=== PATIENT | male | born 1965 | race Caucasian/White ===

== ENCOUNTER → 2017-11-03 10:19 | Outpatient (CLI) | payer OTHER, SELFPAY ==
[2017-11-03 13:03] LABS: Alanine Aminotransferase 38 IU/L (21-72); Albumin 4.6 g/dL (3.5-5.0); Albumin Globulin Ratio 1.6 (1.0-2.8); Alkaline Phosphatase 55 U/L (38-126); Aspartate Aminotransferase 31 IU/L (17-59); BUN Creatinine Ratio 28.6 (6-22); Bilirubin Total 1.3 mg/dL (0.2-1.3); Blood Urea Nitrogen 20 mg/dL (9-20); Calcium 9.5 mg/dL (8.4-10.2); Carbon Dioxide 27 mmol/L (22-32); Chloride 101 mmol/L (98-107); Cholesterol 154 mg/dL (140-199); Estimated Glomerular Filt Rate > 60.0 mL/min (>60); Globulin 2.9 g/dL (1.7-4.1); Glucose 88 mg/dL (70-100); HDL Cholesterol 43 mg/dL (40-60); HEMOLYSIS < 15 (0-50); LDL Cholesterol Calculated 79 mg/dL (<100); Potassium 3.9 mmol/L (3.4-5.1); Sodium 141 mmol/L (137-145); Total Protein 7.5 g/dL (6.3-8.2); Triglycerides 162 mg/dL (35-150)
== END ==
PROVIDERS: PCP Physician Assistant; Visit Provider Physician Assistant
DX: I10 Essential (primary) hypertension (principal)
CPT/HCPCS: 36415; 80053; 80061

== ENCOUNTER → 2019-04-19 10:39 | Outpatient (CLI) | payer OTHER, SELFPAY ==
[2019-04-19 12:37] LABS: Prostate Specific Antigen 1.41 ng/mL (0.10-4.00)
== END ==
PROVIDERS: PCP Family Medicine; Visit Provider Family Medicine
DX: Z12.5 Encounter for screening for malignant neoplasm of prostate (principal)
CPT/HCPCS: 36415; 84153

== ENCOUNTER → 2020-05-30 16:50 | Outpatient (CLI) | payer OTHER, SELFPAY ==
[2020-05-30 17:08] LABS: Add Manual Diff / Slide Review NO; Basophils Absolute Auto 100 /uL (0-100); Basophils Percent Auto 0.7 % (0-2); Eosinophils Absolute Auto 100 /uL (0-450); Eosinophils Percent Auto 1.2 % (2-4); Hematocrit 44.8 % (41-53); Hemoglobin 15.4 g/dL (13.5-17.5); Lymphocytes Absolute Auto 3600 /uL (1100-4500); Lymphocytes Percent Auto 45.5 % (25-40); Mean Corpuscular HGB Conc 34.4 % (30-36); Mean Corpuscular Hemoglobin 30.1 PG (26-34); Mean Corpuscular Volume 87.4 fL (80-100); Monocytes Absolute Auto 500 /uL (0-900); Monocytes Percent Auto 6.3 % (3-14); Neutrophils Absolute Auto 3700 /uL (1500-7000); Neutrophils Percent Auto 46.3 % (50-75); Platelet Count 246 X10^3/uL (150-400); Red Blood Cell Count 5.13 X10^6/uL (4.5-5.9); Red Cell Distribution Width 13.1 % (11.6-14.8)
[2020-05-30 17:34] LABS: Alanine Aminotransferase 54 IU/L (<50); Albumin 4.6 g/dL (3.5-5.0); Albumin Globulin Ratio 1.7 (1.0-2.8); Alkaline Phosphatase 53 U/L (38-126); Aspartate Aminotransferase 39 IU/L (17-59); BUN Creatinine Ratio 26.3 (6-22); Blood Urea Nitrogen 20 mg/dL (9-20); Calcium 9.5 mg/dL (8.4-10.2); Carbon Dioxide 29 mmol/L (22-32); Chloride 102 mmol/L (98-107); Cholesterol 178 mg/dL (140-199); Estimated Glomerular Filt Rate > 60.0 mL/min (>60); Globulin 2.7 g/dL (1.7-4.1); Glucose 93 mg/dL (70-100); HDL Cholesterol 41 mg/dL (40-60); HEMOLYSIS < 15 (0-50); LDL Cholesterol Calculated 92 mg/dL (<100); Potassium 3.8 mmol/L (3.4-5.1); Sodium 137 mmol/L (137-145); Total Protein 7.3 g/dL (6.3-8.2); Triglycerides 226 mg/dL (35-150)
[2020-05-30 18:02] LABS: Prostate Specific Antigen 1.46 ng/mL (0.10-4.00)
== END ==
PROVIDERS: PCP Family Medicine; Referring Provider Family Medicine; Visit Provider Family Medicine
DX: Z00.00 Encounter for general adult medical examination without abnormal findings (principal); I10 Essential (primary) hypertension
CPT/HCPCS: 36415; 80053; 80061; 84153; 85025

== ENCOUNTER 2021-04-24 14:42 | Emergency (ER) | payer OTHER, SELFPAY ==
[2021-04-24] VITALS (7 sets, daily range): BP systolic 143–162; BP diastolic 91–98; PULSE 62–78; RESP 18; TEMP 36.9; O2SAT 97–100; BMI 34.8
[2021-04-24 18:42] LABS: Alanine Aminotransferase 50 IU/L (<50); Albumin 4.7 g/dL (3.5-5.0); Albumin Globulin Ratio 1.7 (1.0-2.8); Alkaline Phosphatase 53 U/L (38-126); Aspartate Aminotransferase 42 IU/L (17-59); BUN Creatinine Ratio 23.5 (6-22); Bilirubin Total 1.1 mg/dL (0.2-1.3); Blood Urea Nitrogen 19 mg/dL (9-20); Calcium 9.7 mg/dL (8.4-10.2); Carbon Dioxide 31 mmol/L (22-32); Chloride 101 mmol/L (98-107); Estimated Glomerular Filt Rate > 60.0 mL/min (>60); Globulin 2.7 g/dL (1.7-4.1); Glucose 87 mg/dL (70-100); HEMOLYSIS < 15 (0-50); Magnesium 2.3 mg/dL (1.6-2.3); Potassium 3.7 mmol/L (3.4-5.1); Sodium 138 mmol/L (137-145); Total Protein 7.4 g/dL (6.3-8.2)
[2021-04-24 18:43] LABS: Add Manual Diff / Slide Review NO; Basophils Absolute Auto 0 /uL (0-100); Basophils Percent Auto 0.4 % (0-2); Eosinophils Absolute Auto 100 /uL (0-450); Eosinophils Percent Auto 1.6 % (2-4); Hematocrit 45.3 % (41-53); Hemoglobin 15.9 g/dL (13.5-17.5); Lymphocytes Absolute Auto 3200 /uL (1100-4500); Lymphocytes Percent Auto 44.8 % (25-40); Mean Corpuscular HGB Conc 35.1 % (30-36); Mean Corpuscular Hemoglobin 30.3 PG (26-34); Mean Corpuscular Volume 86.3 fL (80-100); Monocytes Absolute Auto 700 /uL (0-900); Monocytes Percent Auto 9.9 % (3-14); Neutrophils Absolute Auto 3100 /uL (1500-7000); Neutrophils Percent Auto 43.3 % (50-75); Platelet Count 270 X10^3/uL (150-400); Red Blood Cell Count 5.25 X10^6/uL (4.5-5.9); White Blood Cell Count 7.1 X10^3/uL (4.5-11.0)
--- NOTE | 2021-04-24 19:29 | ED.GENADULT ---
HPI - General Adult <YONG Todd - Last Filed: 04/24/21 19:37> General Chief complaint: Hypertension Stated complaint: HIGH BP X 6 DAYS Time Seen by Provider: 04/24/21 17:06 Source: patient Mode of arrival: Ambulatory History of Present Illness HPI narrative: The patient is a 55-year-old male nonsmoker with history of hypertension who presents with a chief complaint of high blood pressure for 6 days. He states he was having his blood pressure checked at his dentist's office, when they found that his blood pressure was in the 170/110 range. He denies any chest pain shortness of breath, denies any lightheadedness or dizziness. He takes lisinopril/HCTZ 20/25 and states he takes it every single day in the evening. He states he has been compliant with his medications. He states that he has a telehealth appointment with primary care provider tomorrow at 10:30 a.m.. Related Data Previous Rx's Medication Instructions Recorded lisinopril 20 mg tablet 20 mg PO DAILY #90 tab 04/25/21 lisinopril 20 1 tab PO DAILY #90 tab 04/25/21 mg-hydrochlorothiazide 25 mg tablet Allergies Allergy/AdvReac Type Severity Reaction Status Date / Time No Known Drug Allergies Allergy Verified 05/30/20 16:11 Review of Systems <YONG Todd - Last Filed: 04/24/21 19:37> Review of Systems Narrative: GENERAL: Denies chills, fatigue, malaise, fever, sweats. HEENT: Denies sinus pain, ear pain, sore throat, difficulty swallowing, dizziness. RESPIRATORY: Denies dyspnea, cough, wheezing, hemoptysis, sputum. CARDIOVASCULAR: See HPI GASTROINTESTINAL: Denies nausea, vomiting, abdominal pain, diarrhea, constipation, melena. : Denies dysuria, frequency, incontinence, hematuria, urinary retention. MUSCULOSKELETAL: denies weakness, joint pain, or bony pain SKIN: Denies rash, skin lesions, or other NEUROLOGIC: Denies weakness, headache, numbness, change in speech, confusion, seizures, incoordination. PSYCHIATRIC: No concerning psychosocial issues. 12 point review of systems is negative except for those stated above Patient History <YONG Todd - Last Filed: 04/24/21 19:37> Medical History (Updated 04/25/21 @ 10:56 by SHERI Mario) Chronic back pain (Unknown) Hypertension (Unknown) Surgical History History of back surgery (2007) Hx of knee surgery (2011) Hx of microdiscectomy (12/2015) Social History Smoking Status: Never smoker alcohol intake: current (Socially) substance use type: does not use Smoking Status: Never smoker alcohol intake frequency: holidays/special occasions only Substance Use Type: does not use Exam <WADE Todd-BC - Last Filed: 04/24/21 19:37> Narrative Exam Narrative: GENERAL: This is a well-nourished, well-developed patient, in no acute distress with HEAD: Atraumatic. Normocephalic. No temporal or scalp tenderness. EYES: Pupils equal round and reactive. Extraocular motions intact. No scleral icterus. No injection or drainage. ENT: Nose without bleeding, purulent drainage or septal hematoma. Wearing a mask Airway patent. NECK: Trachea midline. No JVD or lymphadenopathy. Supple, nontender, no meningeal signs. CARDIOVASCULAR: Regular rate and rhythm RESPIRATORY: Clear to auscultation. Breath sounds equal bilaterally. No wheezes, rales, or rhonchi. No cough. No increased respiratory effort. No accessory muscle use. GASTROINTESTINAL: Abdomen soft, non-tender, nondistended. No hepato-splenomegaly, or palpable masses. No guarding. EXTREMITIES: No clubbing, cyanosis, or edema. No joint tenderness, effusion, or edema noted. BACK: Nontender without deformity or crepitance. No flank tenderness. NEURO: AOx3. Clear speech. No gross cranial nerve deficit. SKIN: No rash or erythema. Initial Vital Signs Initial Vital Signs: Vital Signs Temperature 98.4 F 04/24/21 14:44 Pulse Rate 78 04/24/21 14:44 Respiratory Rate 18 04/24/21 14:44 Blood Pressure 152/94 H 04/24/21 14:44 Pulse Oximetry 100 04/24/21 14:44 <Fawad Joyner DO - Last Filed: 04/28/21 07:05> Initial Vital Signs Initial Vital Signs: Vital Signs Temperature 98.4 F 04/24/21 14:44 Pulse Rate 78 04/24/21 14:44 Respiratory Rate 18 04/24/21 14:44 Blood Pressure 152/94 H 04/24/21 14:44 Pulse Oximetry 100 04/24/21 14:44 Scores <YONG Todd - Last Filed: 04/24/21 19:37> GCS [place] coma scale eye opening: Spontaneous [place] coma scale verbal response: Orientated [place] coma scale motor response: Obey commands [place] coma scale total score: 15 <Fawad Joyner DO - Last Filed: 04/28/21 07:05> GCS [place] coma scale total score: 15 Course <YONG Todd - Last Filed: 04/24/21 19:37> Orders Ordered: ED Orders 04/24/21 18:12 CBC Auto Diff [Complete Blood Count AUTO DIFF] Stat CMP [Comprehensive Metabolic Panel] Stat MAG [Magnesium] Stat Vital Signs Vital signs: Vital Signs - 8 hr 04/24/21 14:44 04/24/21 17:01 04/24/21 17:30 Temperature 98.4 F Pulse Rate 78 75 64 Respiratory Rate 18 18 18 Blood Pressure 152/94 H 162/98 H 149/96 H Pulse Oximetry 100 97 97 04/24/21 18:00 04/24/21 18:02 04/24/21 18:30 Temperature Pulse Rate 70 64 62 Respiratory Rate 18 18 18 Blood Pressure 152/91 H 149/96 H 143/92 H Pulse Oximetry 97 97 97 04/24/21 19:15 Temperature Pulse Rate 63 Respiratory Rate 18 Blood Pressure 143/91 H Pulse Oximetry 97 <Fawad Joyner DO - Last Filed: 04/28/21 07:05> Orders Ordered: ED Orders 04/24/21 18:12 CBC Auto Diff [Complete Blood Count AUTO DIFF] Stat CMP [Comprehensive Metabolic Panel] Stat MAG [Magnesium] Stat Vital Signs Vital signs: Vital Signs - 8 hr 04/24/21 14:44 04/24/21 17:01 04/24/21 17:30 Temperature 98.4 F Pulse Rate 78 75 64 Respiratory Rate 18 18 18 Blood Pressure 152/94 H 162/98 H 149/96 H Pulse Oximetry 100 97 97 04/24/21 18:00 04/24/21 18:02 04/24/21 18:30 Temperature Pulse Rate 70 64 62 Respiratory Rate 18 18 18 Blood Pressure 152/91 H 149/96 H 143/92 H Pulse Oximetry 97 97 97 04/24/21 19:15 Temperature Pulse Rate 63 Respiratory Rate 18 Blood Pressure 143/91 H Pulse Oximetry 97 Medical Decision Making <Smitha Kitchen, SUPERIOR COURT JUSTICE-BC - Last Filed: 04/24/21 19:37> Lab Data Lab results reviewed: Yes I reviewed the patient's lab results. Result diagrams: 04/24/21 18:12 04/24/21 18:12 Labs: Lab Results 04/24/21 04/24/21 Range/Units 18:12 18:12 WBC 7.1 (4.5-11.0) X10^3/uL RBC 5.25 (4.5-5.9) X10^6/uL Hgb 15.9 (13.5-17.5) g/dL Hct 45.3 (41-53) % MCV 86.3 (80-100) fL MCH 30.3 (26-34) PG MCHC 35.1 (30-36) % RDW 13.0 (11.6-14.8) % Plt Count 270 (150-400) X10^3/uL Neut % (Auto) 43.3 L (50-75) % Lymph % (Auto) 44.8 H (25-40) % [place] % (Auto) 9.9 (3-14) % Eos % (Auto) 1.6 L (2-4) % Baso % (Auto) 0.4 (0-2) % Neut # (Auto) 3100 (5546-5015) /uL Lymph # (Auto) 3200 (7966-8955) /uL [place] # (Auto) 700 (0-900) /uL Eos # (Auto) 100 (0-450) /uL Baso # (Auto) 0 (0-100) /uL Sodium 138 (137-145) mmol/L Potassium 3.7 (3.4-5.1) mmol/L Chloride 101 (98-107) mmol/L Carbon Dioxide 31 (22-32) mmol/L BUN 19 (9-20) mg/dL Creatinine 0.81 (0.66-1.25) mg/dL Estimated GFR > 60.0 (>60) mL/min BUN/Creatinine Ratio 23.5 H (6-22) Glucose 87 (70-100) mg/dL Calcium 9.7 (8.4-10.2) mg/dL Magnesium 2.3 (1.6-2.3) mg/dL Total Bilirubin 1.1 (0.2-1.3) mg/dL AST 42 (17-59) IU/L ALT 50 H (<50) IU/L Alkaline Phosphatase 53 (38-126) U/L Total Protein 7.4 (6.3-8.2) g/dL Albumin 4.7 (3.5-5.0) g/dL Globulin 2.7 (1.7-4.1) g/dL Albumin/Globulin Ratio 1.7 (1.0-2.8) ECG Data Attestation: I personally reviewed and interpreted this ECG as follows: Interpretation: Normal sinus rhythm. Ventricular rate 62. P.r. interval 174. Viewed by Dr Juan PFEIFFER Narrative Medical decision making narrative: The patient is a 52-year-old male who presents with a chief complaint of high blood pressure at his dentist's office several times. His blood pressure in the emergency department in the 140s over 90s. Denies any chest pain or shortness of breath. EKG has no acute findings. Given that the patient has good blood pressures in the emergency department, and has an appointment with primary care provider tomorrow at 10:30 a.m. in the morning, I will defer to his primary care provider to titrate his chronic blood pressure medications. He denies any chest pain or shortness of breath throughout his emergency department stay. Discussed at length follow up with primary care provider, coming back to the ER for acute concerns such as chest pain, shortness of breath etcetera. <Fawad Joyner, - Last Filed: 04/28/21 07:05> Lab Data Labs: Lab Results 04/24/21 04/24/21 Range/Units 18:12 18:12 WBC 7.1 (4.5-11.0) X10^3/uL RBC 5.25 (4.5-5.9) X10^6/uL Hgb 15.9 (13.5-17.5) g/dL Hct 45.3 (41-53) % MCV 86.3 (80-100) fL MCH 30.3 (26-34) PG MCHC 35.1 (30-36) % RDW 13.0 (11.6-14.8) % Plt Count 270 (150-400) X10^3/uL Neut % (Auto) 43.3 L (50-75) % Lymph % (Auto) 44.8 H (25-40) % [place] % (Auto) 9.9 (3-14) % Eos % (Auto) 1.6 L (2-4) % Baso % (Auto) 0.4 (0-2) % Neut # (Auto) 3100 (5460-6005) /uL Lymph # (Auto) 3200 (3975-9201) /uL [place] # (Auto) 700 (0-900) /uL Eos # (Auto) 100 (0-450) /uL Baso # (Auto) 0 (0-100) /uL Sodium 138 (137-145) mmol/L Potassium 3.7 (3.4-5.1) mmol/L Chloride 101 (98-107) mmol/L Carbon Dioxide 31 (22-32) mmol/L BUN 19 (9-20) mg/dL Creatinine 0.81 (0.66-1.25) mg/dL Estimated GFR > 60.0 (>60) mL/min BUN/Creatinine Ratio 23.5 H (6-22) Glucose 87 (70-100) mg/dL Calcium 9.7 (8.4-10.2) mg/dL Magnesium 2.3 (1.6-2.3) mg/dL Total Bilirubin 1.1 (0.2-1.3) mg/dL AST 42 (17-59) IU/L ALT 50 H (<50) IU/L Alkaline Phosphatase 53 (38-126) U/L Total Protein 7.4 (6.3-8.2) g/dL Albumin 4.7 (3.5-5.0) g/dL Globulin 2.7 (1.7-4.1) g/dL Albumin/Globulin Ratio 1.7 (1.0-2.8) Discharge Plan Departure Patient Disposition: Home Clinical Impression: Hypertension Qualifiers: Hypertension type: primary hypertension Qualified Code(s): I10 - Essential (primary) hypertension Instructions: DI for High Blood Pressure Activity Restrictions/Additional Instructions: Thank you for trusting us with your care today. As discussed, your lab work resulted very well, your EKG looks good. Your blood pressure CR of been in the 140s over 90s, so I will defer to Dr. Suarez to change your blood pressure medications. Please follow-up with him as scheduled at 10:30 a.m. tomorrow morning Discussed, please come back to the emergency department for any acute concerns such as chest pain shortness of breath etcetera Prescriptions: No Action lisinopril 20 mg tablet 20 mg PO DAILY Qty: 90 3RF Rx Instructions: Take 1 tab daily at bedtime. Goal BP is <140/90 consistently. lisinopril-hydrochlorothiazide 20-25 mg tablet 1 tab PO DAILY Qty: 90 3RF Rx Instructions: Take 1 tab each morning for hypertension Referrals: Alexander Suarez DO [Primary Care Provider] - <Fawad Joyner DO - Last Filed: 04/28/21 07:05> Cosign ED Attending Cosignature Attestation: Dr Joyner Co-Sign Statement: I was available for consultation during this patient's emergency department visit. This chart is signed by myself for administrative purposes only. I did not have direct contact with this patient during this visit. They were seen independently by the APC.
== END 2021-04-24 19:40 | disposition home or self-care (01) ==
PROVIDERS: Emergency Provider Nurse Practitioner Family; PCP Family Medicine
DX: I10 Essential (primary) hypertension (principal)
CPT/HCPCS: 36415; 80053; 83735; 85025; 93005; 93010; 99283

== ENCOUNTER → 2021-05-16 11:43 | Outpatient (CLI) | payer OTHER, SELFPAY ==
[2021-05-16 13:41] LABS: Free T3, Triiodothyronine Free 4.07 pg/mL (2.77-5.27); Free T4, Direct Thyroxine 0.82 ng/dL (0.78-2.19)
[2021-05-16 13:55] LABS: Thyroid Stimulating Hormone 4.69 uIU/mL (0.47-4.68)
[2021-05-16 15:29] LABS: Creatinine Urine Random 186.7 mg/dL
[2021-05-16 15:33] LABS: Microalbumi Creatinin Ratio Ur 16.6 ug/mg CR (<30); Microalbumin Urine Random 3.1 mg/dL (0-1.6)
[2021-05-16 19:03] LABS: Prostate Specific Antigen Scrn 1.08 ng/mL (0.1-4.0)
== END ==
PROVIDERS: PCP Family Medicine; Referring Provider Nurse Practitioner; Visit Provider Nurse Practitioner
DX: E78.5 Hyperlipidemia, unspecified (principal); I10 Essential (primary) hypertension; Z12.5 Encounter for screening for malignant neoplasm of prostate
CPT/HCPCS: 36415; 82043; 82570; 84439; 84443; 84481; G0103

== ENCOUNTER → 2021-08-23 12:38 | Outpatient (CLI) | payer OTHER, SELFPAY ==
[2021-08-23 13:19] LABS: Alanine Aminotransferase 58 IU/L (<50); Albumin 4.7 g/dL (3.5-5.0); Albumin Globulin Ratio 1.9 (1.0-2.8); Alkaline Phosphatase 55 U/L (38-126); Aspartate Aminotransferase 54 IU/L (17-59); Bilirubin Total 1.4 mg/dL (0.2-1.3); Blood Urea Nitrogen 16 mg/dL (9-20); Calcium 9.4 mg/dL (8.4-10.2); Carbon Dioxide 29 mmol/L (22-32); Chloride 102 mmol/L (98-107); Cholesterol 172 mg/dL (140-199); Estimated Glomerular Filt Rate > 60 mL/min (>60); Globulin 2.5 g/dL (1.7-4.1); Glucose 90 mg/dL (70-100); HDL Cholesterol 46 mg/dL (40-60); HEMOLYSIS < 15 (0-50); LDL Cholesterol Calculated 85 mg/dL (<100); Sodium 139 mmol/L (137-145); Total Protein 7.2 g/dL (6.3-8.2); Triglycerides 203 mg/dL (35-150); Uric Acid 8.3 mg/dL (3.5-8.5)
[2021-08-23 13:29] LABS: Free T4, Direct Thyroxine 1.05 ng/dL (0.78-2.19)
[2021-08-23 13:43] LABS: Thyroid Stimulating Hormone 3.94 uIU/mL (0.47-4.68)
== END ==
PROVIDERS: PCP Family Medicine; Referring Provider Family Medicine; Visit Provider Family Medicine
DX: E03.9 Hypothyroidism, unspecified (principal); I10 Essential (primary) hypertension
CPT/HCPCS: 36415; 80053; 80061; 84439; 84443; 84550

== ENCOUNTER → 2022-07-14 12:38 | Outpatient (CLI) | payer OTHER, SELFPAY ==
[2022-07-14 14:12] LABS: Alanine Aminotransferase 39 IU/L (<50); Albumin 4.3 g/dL (3.5-5.0); Albumin Globulin Ratio 1.6 (1.0-2.8); Alkaline Phosphatase 60 U/L (38-126); Aspartate Aminotransferase 34 IU/L (17-59); BUN Creatinine Ratio 28.4 (6-22); Bilirubin Total 1.4 mg/dL (0.2-1.3); Blood Urea Nitrogen 21 mg/dL (9-20); Calcium 8.8 mg/dL (8.4-10.2); Carbon Dioxide 30 mmol/L (22-32); Chloride 100 mmol/L (98-107); Estimated Glomerular Filt Rate > 60 mL/min (>60); Globulin 2.7 g/dL (1.7-4.1); Glucose 88 mg/dL (70-100); HEMOLYSIS < 15 (0-50); Potassium 4.4 mmol/L (3.4-5.1); Sodium 137 mmol/L (137-145)
== END ==
PROVIDERS: PCP Family Medicine; Referring Provider Family Medicine; Visit Provider Family Medicine
DX: I10 Essential (primary) hypertension (principal)
CPT/HCPCS: 36415; 80053

== ENCOUNTER → 2023-02-26 12:19 | Outpatient (CLI) | payer OTHER, SELFPAY ==
[2023-02-26 13:14] LABS: Add Manual Diff / Slide Review NO; Basophils Absolute Auto 0 /uL (0-100); Basophils Percent Auto 0.3 % (0-2); Eosinophils Absolute Auto 100 /uL (0-450); Eosinophils Percent Auto 1.2 % (2-4); Hematocrit 41.8 % (41-53); Hemoglobin 14.6 g/dL (13.5-17.5); Lymphocytes Absolute Auto 2600 /uL (1100-4500); Lymphocytes Percent Auto 42.3 % (25-40); Mean Corpuscular HGB Conc 34.9 % (30-36); Mean Corpuscular Hemoglobin 30.7 PG (26-34); Mean Corpuscular Volume 87.8 fL (80-100); Monocytes Absolute Auto 400 /uL (0-900); Monocytes Percent Auto 6.4 % (3-14); Neutrophils Absolute Auto 3000 /uL (1500-7000); Neutrophils Percent Auto 49.8 % (50-75); Platelet Count 290 X10^3/uL (150-400); Red Blood Cell Count 4.76 X10^6/uL (4.5-5.9); Red Cell Distribution Width 12.7 % (11.6-14.8); White Blood Cell Count 6.1 X10^3/uL (4.5-11.0)
[2023-02-26 13:32] LABS: Alanine Aminotransferase 33 IU/L (<50); Albumin 4.4 g/dL (3.5-5.0); Albumin Globulin Ratio 1.4 (1.0-2.8); Alkaline Phosphatase 60 U/L (38-126); Aspartate Aminotransferase 33 IU/L (17-59); BUN Creatinine Ratio 23.3 (6-22); Bilirubin Total 0.8 mg/dL (0.2-1.3); Blood Urea Nitrogen 17 mg/dL (9-20); Calcium 9.8 mg/dL (8.4-10.2); Carbon Dioxide 28 mmol/L (22-32); Chloride 98 mmol/L (98-107); Cholesterol 163 mg/dL (140-199); Estimated Glomerular Filt Rate > 60 mL/min (>60); Globulin 3.1 g/dL (1.7-4.1); Glucose 91 mg/dL (70-100); HDL Cholesterol 43 mg/dL (40-60); HEMOLYSIS < 15 (0-50); LDL Cholesterol Calculated 87 mg/dL (<100); Potassium 3.8 mmol/L (3.4-5.1); Sodium 135 mmol/L (137-145); Total Protein 7.5 g/dL (6.3-8.2); Triglycerides 165 mg/dL (35-150)
[2023-02-26 14:06] LABS: TSH w/ Reflex to FT4 2.88 uIU/mL (0.47-4.68)
[2023-02-26 14:07] LABS: Prostate Specific Antigen 1.38 ng/mL (0.10-4.00)
== END ==
PROVIDERS: PCP Family Medicine; Referring Provider Family Medicine; Visit Provider Family Medicine
DX: Z00.00 Encounter for general adult medical examination without abnormal findings (principal); E03.9 Hypothyroidism, unspecified; I10 Essential (primary) hypertension
CPT/HCPCS: 36415; 80053; 80061; 84153; 84443; 85025

== ENCOUNTER → 2023-12-11 17:11 | Outpatient (CLI) | payer OTHER, SELFPAY ==
--- NOTE | 2023-12-11 17:12 | DI.MRI.S_ITS ---
PROCEDURE: MR KNEE LT WO CON INDICATIONS: INTERNAL DERANGEMENT OF KNEE TECHNIQUE: Noncontrast sagittal PD fast spin echo and T2 fast spin echo with fat saturation, sagittal 3-D FLASH with fat saturation; coronal T1 spin echo and PD fast spin echo with fat saturation, and axial PD fast spin echo with fat saturation through the knee. COMPARISON: [facility], CR, XR KNEE 4+ VIEWS LEFT, 01/28/2023, 12:17. FINDINGS: Image quality: Excellent. Menisci: There is prior partial medial meniscectomy with truncated appearance of medial meniscus. Signal abnormality involving posterior horn remanent of medial meniscus extending to inferior articulating surface suggestive of recurrent oblique tear. The lateral meniscus is intact. The meniscal root ligaments appear intact. Cruciate ligaments: The anterior cruciate ligament is mildly thickened. The posterior cruciate ligament is intact. Medial structures: The medial collateral ligament appears thickened with mild surrounding edema. Visualized portions of the pes anserinus tendons appear normal. No abnormal bursal fluid. Lateral structures: The lateral collateral ligament, long and short heads of the biceps femoris tendon appear intact. The popliteus tendon appears normal. Iliotibial band appears normal. Anterior structures: Soft tissue edema and ill-defined fluid along anterolateral aspect of patella and patella tendon is seen. There is distal quadriceps tendinosis. The patellar tendon is intact. Patellar alignment is normal. No femoral trochlear dysplasia or ventral trochlear prominence. No edema in the infrapatellar fat pad. Bones and cartilage: There is marrow edema involving medial periphery of medial tibial plateau without discrete fracture line. No other area of abnormal marrow signal. Low-grade chondromalacia in medial femoral tibial compartment is seen. Joint space: There is small knee joint fluid. No Necarnacion's cyst. Normal appearing synovial plicae are incidentally noted. IMPRESSION: 1. Prior partial medial meniscectomy with postsurgical changes. Suggestion of recurrent oblique tear involving posterior horn remanent of medial meniscus extending to inferior articulating surface. The lateral meniscus is intact. 2. Low-grade ACL sprain. The PCL is intact. 3. Low-grade sprain/partial-thickness tear involving MCL. 4. Distal quadriceps tendinosis. The patellar tendon is intact. Soft tissue edema and swelling with ill-defined fluid along anterior lateral aspect of patella and patella tendon. 5. Contusion involving medial periphery of medial tibial plateau. No fracture or dislocation. Low-grade medial femoral tibial compartment chondromalacia. Small knee joint effusion, no loose bodies. Dictated by: Yung Galvez M.D. on 12/12/2023 at 23:23 Approved by: Yung Galvez M.D. on 12/12/2023 at 23:28
== END ==
LOC: MRI 17:11
PROVIDERS: PCP Family Medicine; Referring Provider Orthopaedic Surgery Adult Reconstructive Orthopaedic Surgery; Visit Provider Orthopaedic Surgery Adult Reconstructive Orthopaedic Surgery
DX: S83.512A Sprain of anterior cruciate ligament of left knee, initial encounter (principal); S83.412A Sprain of medial collateral ligament of left knee, initial encounter; M23.92 Unspecified internal derangement of left knee; S80.02XA Contusion of left knee, initial encounter; M94.262 Chondromalacia, left knee; M25.462 Effusion, left knee
CPT/HCPCS: 73721

== ENCOUNTER → 2023-12-29 10:42 | Outpatient (CLI) | payer OTHER, SELFPAY ==
--- NOTE | 2023-12-29 10:44 | EKG_ITS ---
[id number] [address] Test Date: 2023-12-29 Pat Name: Michele Arredondo Department: Room: Gender: Male Erp Engineer: BENOIT : 1965 Requested By: Order Number: [id number] Reading MD: Pineda Lakhani Measurements Intervals [place] Rate: 63 P: -47 VT: 136 QRS: 18 QRSD: 98 T: 5 QT: 422 QTc: 431 Interpretive Statements Unusual P axis, possible ectopic atrial rhythm Nonspecific T wave abnormality Electronically Signed On 01-04-2024 9:07:22 PDT by Pineda Lakhani
[2023-12-29 12:14] LABS: Add Manual Diff / Slide Review NO; Basophils Absolute Auto 0 /uL (0-100); Basophils Percent Auto 0.5 % (0-2); Eosinophils Absolute Auto 200 /uL (0-450); Eosinophils Percent Auto 2.7 % (2-4); Hematocrit 44.8 % (41-53); Hemoglobin 15.3 g/dL (13.5-17.5); Lymphocytes Absolute Auto 2500 /uL (1100-4500); Mean Corpuscular HGB Conc 34.2 % (30-36); Mean Corpuscular Hemoglobin 30.7 PG (26-34); Mean Corpuscular Volume 89.7 fL (80-100); Monocytes Absolute Auto 600 /uL (0-900); Monocytes Percent Auto 8.6 % (3-14); Neutrophils Absolute Auto 3300 /uL (1500-7000); Neutrophils Percent Auto 50.2 % (50-75); Platelet Count 294 X10^3/uL (150-400); Red Cell Distribution Width 13.5 % (11.6-14.8); White Blood Cell Count 6.6 X10^3/uL (4.5-11.0)
[2023-12-29 12:52] LABS: Hemoglobin A1C% w Est Avg Glu 5.4 % (4.0-6.0)
[2023-12-29 12:58] LABS: Albumin 4.6 g/dL (3.5-5.0); BUN Creatinine Ratio 21.6 (6-22); Blood Urea Nitrogen 19 mg/dL (9-20); Calcium 9.8 mg/dL (8.4-10.2); Carbon Dioxide 26 mmol/L (22-32); Chloride 101 mmol/L (98-107); Estimated Glomerular Filt Rate > 60 mL/min (>60); Glucose 97 mg/dL (70-100); HEMOLYSIS < 15 (0-50); Potassium 3.8 mmol/L (3.4-5.1); Sodium 136 mmol/L (137-145)
[2023-12-29 13:11] LABS: Prealbumin 29.3 mg/dL (17.6-36.0)
[2023-12-29 13:23] LABS: Vitamin D 25 Hydroxy (D3) 52.2 ng/mL (30.0-100.0)
== END ==
PROVIDERS: PCP Family Medicine; Referring Provider Orthopaedic Surgery Adult Reconstructive Orthopaedic Surgery; Visit Provider Orthopaedic Surgery Adult Reconstructive Orthopaedic Surgery
DX: Z01.818 Encounter for other preprocedural examination (principal); R77.0 Abnormality of albumin; E55.9 Vitamin D deficiency, unspecified; Z01.812 Encounter for preprocedural laboratory examination; R73.9 Hyperglycemia, unspecified
CPT/HCPCS: 36415; 80048; 82040; 82306; 83036; 84134; 85025; 93005

== ENCOUNTER 2024-04-15 06:07 | Day surgery (SDC) | payer OTHER, SELFPAY ==
[2024-04-12 13:05] VITALS: BMI 42.3
[2024-04-15] VITALS (7 sets, daily range): BP systolic 91–134; BP diastolic 60–93; PULSE 66–94; RESP 16; TEMP 36.1–36.8; O2SAT 96–99; BMI 42.3
--- NOTE | 2024-04-15 06:00 | DI.RAD.S_ITS ---
PROCEDURE: XR KNEE LT 1TO2V INDICATIONS: tka TECHNIQUE: 2 views of the knee were acquired. COMPARISON: None. FINDINGS: Bones: Medial tibiofemoral knee arthroplasty. Normal alignment. Soft tissues: No joint effusion. No suspicious soft tissue calcifications. IMPRESSION: Medial tibiofemoral knee arthroplasty, with normal alignment. Dictated by: Chris Kidd M.D. on 04/15/2024 at 10:51 Approved by: Chris Kidd M.D. on 04/15/2024 at 10:52
[2024-04-15] MEDS: LACTATED RINGERS 1,000 ML 42 ML IV (07:02)
[2024-04-15] MEDS: MELOXICAM 7.5 MG TABLET 15 MG PO (07:03)
--- NOTE | 2024-04-15 07:45 | PM.PREOP ---
Pre-operative Note Interval Note History & Physical reviewed/Exam performed by Physician: Yes Changes to H&P: No
[2024-04-15] MEDS: CEFAZOLIN 2 GM/100 ML PREMIX 100 ML IV (07:58)
[2024-04-15] MEDS: TRANEXAMIC ACID 1,000 MG VIAL 2000 MG INJ ×2 (08:00→09:40)
--- NOTE | 2024-04-15 08:29 | SUR.OPER ---
Supine on padded OR bed. Pillow under head, arms secured on padded armboards <90 degree abduction. Safety belt across torso. Non-operative leg secured with tape over blanket over lower leg. Operative leg secured in Babak positioner. Foam padded brace at thigh of operative leg.
[2024-04-15] MEDS: ROPIVACAINE/EPI/CLONIDINE/KET 50 ML SYRINGE INJ (08:34)
--- NOTE | 2024-04-15 10:18 | PM.OP.1 ---
Operative Date/Time/Diagnoses Date of procedure: 04/15/24 Pre-op diagnosis: Left knee osteoarthritis Post-op diagnosis: same Procedure & Clinicians Procedure: Left medial unicompartmental knee arthroplasty Same procedure as scheduled: Yes Surgeon: Paulo Simmons Live Ammunition Inspector: Maura Corey Anesthesia Type: Spinal, Sedation and Local Operative Notes Estimated Blood Loss (mL): 150 Procedure in detail: Robotic assisted left medial unicompartmental knee arthroplasty using the [employer] journey 2 system Implants: Size 6 Oxinium Femoral Component Size 8 Tibial Component Size 8 mm Polyethylene Procedure Summary: This patient had isolated medial compartment arthritis as confirmed on an MRI. Robotic assistance was utilized. He had an intact ACL, intact lateral compartment, and a relatively focal defect in the medial femoral condyle, and mild degenerative changes in the patellofemoral compartment. His varus deformity was measured at 3? at the start of the procedure - which aligned with the preoperative long leg measurement of 4? - and 2? at the conclusion of the procedure. At the conclusion of the procedure I was able to insert and remove a 2 mm insert without significant interference and had tightness when inserting and removing a 3 mm insert. Procedure in Detail: This patient was seen preoperatively and evaluated for knee pain which was refractory to numerous nonoperative treatment modalities. Their pain correlated with radiographic changes demonstrating significant degeneration in the knee joint. The risks and benefits of continued nonoperative management versus operative management were discussed at length and all of the patient?s questions were answered. Additional educational materials providing further details beyond our discussion in clinic were provided via a publicly available patient education video which included the incidence of medical complications associated with total knee arthroplasty, reasons for revision following total knee arthroplasty, and patient satisfaction rates following unicompartmental knee arthroplasty. With this understanding of the risks inherent to the procedure, the patient elected to move forward with operative management. Following preoperative optimization, the patient was scheduled for surgery. The patient was met in the preoperative holding area the day of the procedure and all questions were answered. The patient?s nares were swabbed with betadine in order to decolonize them from MRSA. Informed consent was signed and the left limb was marked with indelible ink.? The patient was brought back to the operating room where anesthesia was induced. The patient was transferred to the operating table and all bony prominences were padded. The operative site was prepped and draped in the usual sterile fashion. A second prep stick was utilized following drape placement. The incision was marked corresponding to the medial aspect of the tibial tubercle and the patella. I[place]an was wrapped circumferentially around the knee. Prior to incision, tranexamic acid and cefazolin were administered. Templating images were displayed. A timeout procedure was performed verifying the patient?s identity, medical comorbidities, allergies, relevant medications, anesthesia type and the surgical plan. All present were in agreement. The assistance of a physician child care assistant was required for positioning, room setup, soft tissue retraction and wound closure. Without this assistance, the procedure would have been significantly more challenging and time consuming.?? The tourniquet was inflated prior to incision. I made an anterior incision over the knee, dissected through the subcutaneous tissues and identified the lateral border of the VMO. Medial and lateral soft tissue flaps were developed. A medial parapatellar arthrotomy was performed. I released tissue off of the proximal medial tibia. I inserted pins for the robotic rays into the femur and tibia. I mapped out the distal femur and proximal tibia using the robotic array and mapped out the hip knee ankle axis as well. I noted grossly that she had some recoil with knee hyperextension. Also noted that the varus deformity was approximately 3? on the robotic array. I had measured it at 4? on the standing long-leg scanogram radiograph. I made a plan which would involve burring of the tibia and femur using the robotic system which would lead to a planned 2? of varus with an 8 mm insert. After reviewing all parameters on this plan I felt that it was appropriate and proceeded with burring. I initially burred the distal femur and the posterior femur followed by the proximal tibia. During burring of the proximal tibia I noted that the pin for the femur had extended distally far enough that it interfered with a bur so I backed that out slightly. I then finished the burring process and placed trials. I found these had appropriate parameters both with my gross assessment and with the robotic assessment. I therefore implanted those components. All bony ends were copiously irrigated and dried. Cement was introduced. The tibial component was inserted and excess cement was removed ensuring no cement had leaked out the back of the knee. Cement was then placed on the femur and the femoral component was inserted while maintaining pressure on the anterior tibial base plate to prevent lift-off. An 8 mm insert was then placed. This was a trial. The knee was placed into full extension and allowed to dry. Once cement had dried excess cement was removed, the tourniquet was taken down, and I again trialed with the 2 mm and 3 mm insert. I found that the 8 mm polyethylene had the correct gross kinematics on my assessment that I desired and I therefore placed the final polyethylene insert. The tissues were briefly soaked in peroxide and Betadine as a dilute mixture and then the knee was copiously irrigated. The arthrotomy was closed with ethibond suture ensuring that this extended to the top of the arthrotomy. This was backed up with running barbed suture throughout the arthrotomy. The skin was closed with 2-0 and 3-0 sutures. Surgical glue was applied and a soft dressing was placed.?The sponge, instrument and needle counts were reported as being correct at the end of the case.??No obvious complications occurred. The patient was transferred from the operating table back to a stretcher. The patient emerged from anesthesia without difficulty and was taken to the PACU in a stable condition.? Plan for aftercare: Weightbearing as tolerated Mobilization as soon as the patient has recovered from anesthesia. If physical therapists are unavailable at the time the patient is ready to ambulate, then nursing staff should help patient ambulate Aspirin 81 twice per day for DVT prophylaxis Multimodal pain regimen with no IV opioids ordered Anticipate discharge home later today Follow up at [facility] in 2 weeks Detailed postoperative instructions available at [email or web address]
[2024-04-15] MEDS: OXYCODONE IR 5 MG TABLET PO ×2 (10:49→12:11)
--- NOTE | 2024-04-15 12:12 | SUR.PHASEII ---
Physical therapy contacted for second time regarding need for assessment.
--- NOTE | 2024-04-15 12:52 | PT.IIE ---
Current Diagnoses Unilateral primary osteoarthritis, left knee (04/15/24) Surgery Performed Operation Date: 04/15/24 07:45 Actual Procedures p Medial Unicompartment Knee Arthroplasty - Robot(Left) - Paulo Simmons MD Surgical History (Last Reviewed 02/12/24 @ 10:14 by Alexander Suarez DO) History of back surgery (2006) Hx of knee surgery (2011) Hx of microdiscectomy (12/2015) Medical History (Last Reviewed 02/12/24 @ 10:14 by Alexander Suarez DO) Chronic back pain (Unknown) Encounter for pre-operative cardiovascular clearance Hypertension (Unknown) Hypothyroid Skin lesions Unilateral primary osteoarthritis, left knee Physical Therapy Inpatient Evaluation/Re-Eval M1 PT/OT-IP Prior Functional Status Start: 04/15/24 14:53 Freq: NEEDED Status: Active Protocol: Document 04/15/24 12:52 AB (Rec: 04/15/24 15:05 [id number]) Medical Review Prior Functional Status Medical History Reviewed Yes Communication able to make needs known Mobility and Gait pt statd that he was independent with all mobilities and ambulation without AD Social History Household Members spouse Living Arrangements House Number of Floors (Floors) One Floor Number of Stairs To Enter/Railing? 3 platform steps to enter Home Environment Standard Height Toilet,Walk in Shower,Built-In Shower Seat Home Equipment Front Wheel Walker,Hand Held Shower Employment Status Unemployed M2 PT-IP Current Condition Start: 04/15/24 14:53 Freq: NEEDED Status: Active Protocol: Document 04/15/24 12:52 AB (Rec: 04/15/24 15:05 AB [id number]) Physical Therapy Current Condition Current Condition Evaluation Date 04/15/24 Treatment Diagnosis s/p L uni knee; difficulty in walking Onset Date 04/15/24 M3 PT-IP Subjective Start: 04/15/24 14:53 Freq: NEEDED Status: Active Protocol: Document 04/15/24 12:52 AB (Rec: 04/15/24 15:05 AB [id number]) Subjective Physical Therapy Visit Type Type Initial Evaluation Visit Start Time 12:52 Visit Stop Time 13:25 Number of SKIVER COUNTER Visits 0 Physical Therapy Visit Comments Patient Comments agreeable to do PT Therapy Pain Assessment Pain When Pain Assessed At Rest Pain Present Pain Present Pain Reported Location Left Knee Intensity 5 Scale Used Numeric (0 - 10) Pain Management Techniques Distraction,Modification of Treatment,Re-positioning, Timing of Activity with Medications M4 PT-IP Mobility and Gait Start: 04/15/24 14:53 Freq: NEEDED Status: Active Protocol: Document 04/15/24 12:52 AB (Rec: 04/15/24 15:05 AB [id number]) PT-Bed Mobility Assessment Supine to Sit Supine to Sit Independent PT-Transfer Assessment Sit to and From Stand Sit to and from Stand Standby Assistance,1 Person Assistance,Use of Upper Extremities Equipment Transfer Assistive Device Gait Belt,Front Wheeled Walker Orthotic/Prosthetic Devices or Brace: No Comments Mobility Comments pt supine in bed. obtained PLOF and home setup. BP checked. 101/57. pt completed supine to sit mod I. post-op folder provided and reviewed contents. educated on HEP. spouse arrived. pt completed sit to stand SBA. BP: 107/58. no c/o dizziness/ lightheadedness. ambulated using FWW SBA to CGA ~ 30 ft. pt sat back on EOB. caregiver training conducted. educated spouse on how to use safety belt and how to assist pt. spouse was able to put safety belt on and ambulated pt in room ~ 20 ft. educated pt and spouse regarding stair climbing. pt completed up/down step stool using FWW simulating up/down platform step using FWW. pt completed requiring CGA and cues. spouse was able to assist. pt ambulated back to EOB SBA using FWW. left pt with spouse. informed nurse. Gait Assessment Gait Gait Assistance Required: Standby Assistance,Contact Guard Assist Distance (Feet) 30 Able to Maintain Weight Bearing Status Yes During Gait Assistive Devices Assistive Device Gait Belt,Front Wheeled Walker Orthotic/Prosthetic Devices or Brace: No Gait Deviations General Gait Pattern Antalgic Factors Limiting Gait Function Factors Limiting Gait Function Decreased Activity Tolerance, Decreased Strength,Limited Range of Motion,Pain,Poor Balance,Poor Safety Awareness Stair Climbing Assessment Evaluation Level of Assist On Stairs Contact Guard Assistance Devices Stair Climbing Assistive Devices Front Wheel Walker Technique/Endurance Stair Climbing Direction Ascend and Descend Stair Climbing Technique Step to Step Number of Steps Climbed 1 Query Text: Stair Climbing Set # Repetitions (reps) 2 PT-Balance Assessment Sitting Balance and Reactions Static Sitting Balance Ability Normal Dynamic Sitting Balance Ability Normal Standing Balance and Reactions Static Standing Balance Ability Good Dynamic Standing Balance Ability Fair Device Used FWW M5 PT-IP Objective Assessments Start: 04/15/24 14:53 Freq: NEEDED Status: Active Protocol: Document 04/15/24 12:52 AB (Rec: 04/15/24 15:05 [id number]) Orientation Orientation/Cognition Level of Alertness Alert Orientation Name,Place,Situation Language Function Ability No Deficits Noted Safety Awareness Decreased Safety Awareness Memory Description No Deficits Noted Gross Range of Motion Lower Extremity ROM Impairments L knee flexion: ~ 90 deg Strength Lower Extremity Strength Assessment Left Impaired Hip 4-/5 Knee 4-/5 Coordination Assessment Gross Coordination Gross Coordination WNL Sensation Assessment Sensation Gross Sensation WNL Muscle Tone Muscle Tone WNL Yes M6 PT-IP Treatment Start: 04/15/24 14:53 Freq: NEEDED Status: Active Protocol: Document 04/15/24 12:52 AB (Rec: 04/15/24 15:05 [id number]) Physical Therapy Treatment Education Education Provided Precautions,Weight Bearing Status,Post-Op Packet,Safety M7 PT-IP Assessment and Plan Start: 04/15/24 14:53 Freq: NEEDED Status: Active Protocol: Document 04/15/24 12:52 AB (Rec: 04/15/24 15:05 [id number]) PT Summary Assessment and Plan Potential Rehabilitation Potential Fair Status of Condition at Evaluation Stable Summary Impairments Pain,ROM,Strength,Balance, Transfers,Gait,Activity Tolerance Assessment Summary pt is a 58 y/o M s/p L uni knee POD 0. pt is WBAT on LLE . pt requiring SBA to CGA with all mobilities using fWW. pt plans to go home and spouse to assist him. caregiver training conducted and spouse was able to assist pt with mobility. pt has outpt PT set up. pt may go home when medically stable. Goals Transfer Goal Independent,Front Wheeled Walker Gait Goal Independent,Front Wheel Walker Gait Distance 200 Other Goals up/down 3 platform steps mod I using FWW Days to Meet Goals 5 Frequency of Treatment Frequency Of Treatment Twice a Day Treatment Plan Physical Therapy Treatment Plan Bed Mobility Training,Transfer Training,Gait Training, Therapeutic Exercise,Balance Retraining,Post Op Education, Discharge Planning,Hot or Cold Pack,Neuromuscular Re-ed, Coordination Retraining,Manual Therapy Weight Bearing Status Weight Bearing Status Weight Bear as Tolerated Allowed Weight Bearing Amount (enter % LLE WBAT or #) (%) Recommendations To Nursing Amount of Assist Needed 1 Person Assist Discharge Recommendations PT Discharge Recommendations Home with Assistance, Outpatient PT Transportation Needs at Discharge Private Vehicle
== END 2024-04-15 13:41 | disposition home or self-care (01) ==
PROVIDERS: PCP Family Medicine; Referring Provider Orthopaedic Surgery Adult Reconstructive Orthopaedic Surgery; Visit Provider Orthopaedic Surgery Adult Reconstructive Orthopaedic Surgery
PROC: (CPT 27446; principal; 2024-04-15 07:45)
DX: M17.12 Unilateral primary osteoarthritis, left knee (principal); M21.162 Varus deformity, not elsewhere classified, left knee
CPT/HCPCS: 27446; 20985; 73560; 97161; 97530; C1776; J0690; J2250; J2405; J2704; J3010